=== PATIENT | female | born 1955 | race Two or more races ===

== ENCOUNTER 2022-10-23 23:46 | Emergency (ER) | payer MEDICARE, OTHER ==
[~2022-10-23] VITALS: Ht 157.5 cm; Wt 82.6 kg
[~2022-10-23 23:46] MED LIST: ACYC400T19 PO; ALLO300T2 PO; BISA5TAB10 PO; DOCU100C36 PO; LACT10SO3 PO; LATA2.5D15 EACHEYE; LEVE750T10 PO; LORA10TA7 PO; METO-357 PO; ONDA8TAB13 PO; PANT40TA49 PO; POLY17PO4 PO; SULF1TAB48 PO; [UNRECOGNIZED DRUG - OTHER]
[2022-10-24] MEDS ORDERED: LORAZEPAM 1 MG TABLET PO ONE
[2022-10-24] MEDS ORDERED: LORAZEPAM 1 MG TABLET ONE (00:15)
[2022-10-24 01:00] VITALS: BP 127/78; TEMP 98.1; O2SAT 100
== END 2022-10-24 01:01 | disposition home or self-care (01) ==
LOC: ER 23:46
DX: F41.9 Anxiety disorder, unspecified (principal); I10 Essential (primary) hypertension; Z88.0 Allergy status to penicillin; Z88.8 Allergy status to other drugs, medicaments and biological substances; Z79.899 Other long term (current) drug therapy